=== PATIENT | male | born 1965 | race Caucasian/White ===

== ENCOUNTER → 2018-10-29 | Outpatient (CLI) | payer OTHER ==
--- NOTE | 2018-10-29 13:32 | Diagnostic Imaging Report ---
PROCEDURE: MR imaging cervical spine without contrast. TECHNIQUE: Multiplanar, multisequence MR imaging of the cervical spine was performed without contrast. INDICATION: Neck pain and stiffness as well as bilateral shoulder pain. No prior studies are available for comparison. There is mild straightening of the normal cervical lordotic curvature. Minimal retrolisthesis of C5 on C6 is noted. Vertebral body marrow signal is normal. No geographic marrow lesion is seen. There is generalized degenerative disc disease with variable disc space narrowing and desiccation. The cervical cord demonstrates normal homogeneous signal intensity and normal morphology. Craniocervical junction is unremarkable. C2-C3: The central canal and neural foramina are widely patent. C3-C4: Central canal is patent. There is mild neuroforaminal narrowing on the right due to uncovertebral joint degenerative change. Left neural foramen is patent. C4-C5: Central canal is patent. Endplate osteophyte indenting the ventral thecal sac. Neural foramina remain patent. C5-C6: Endplate osteophytes indent the ventral thecal sac. There is mild narrowing of the canal. Moderate bilateral neural foraminal narrowing due to uncovertebral joint degenerative change. C6-C7: Endplate osteophytes indent the thecal sac. The central canal is patent. Neural foramina are patent. C7-T1: Central canal and neural foramina are patent bilaterally. Paraspinous tissues are unremarkable. IMPRESSION: Cervical spondylosis with central canal and neural foraminal narrowing described level by level above. Dictated by: Dictated on workstation # [id number]
== END ==
LOC: RAD 12:00
PROVIDERS: ATTEND Physician Assistant
DX: M50.30 Other cervical disc degeneration, unspecified cervical region (principal); M47.812 Spondylosis without myelopathy or radiculopathy, cervical region; M48.02 Spinal stenosis, cervical region; M25.78 Osteophyte, vertebrae
CPT/HCPCS: 72141

== ENCOUNTER 2022-12-24 09:00 | Day surgery (SDC) | payer BC ==
[~2022-12-24] VITALS: Ht 182.9 cm; Wt 96.8 kg
[2022-12-24] VITALS (8 sets, daily range): BP systolic 108–121; BP diastolic 67–74
[2022-12-24 07:33] LABS: HEMATOCRIT 44 % (40-54); MEAN CORPUSCULAR HEMOGLOBIN 29 pg (25-34); MEAN CORPUSCULAR HGB CONC 34 g/dL (32-36); MEAN CORPUSCULAR VOLUME 86 fL (80-99); MEAN PLATELET VOLUME 9.8 fL (9.0-12.2); PLATELET COUNT 200 10^3/uL (130-400); WHITE BLOOD COUNT 7.5 10^3/uL (4.3-11.0)
[2022-12-24 07:46] LABS: PROTHROMBIN TIME PATIENT 13.1 SEC (12.2-14.7)
[2022-12-24 07:54] LABS: ALBUMIN 4.4 GM/DL (3.2-4.5); BILIRUBIN,TOTAL 0.8 MG/DL (0.1-1.0); CALCIUM 9.3 MG/DL (8.5-10.1); CREATININE SERUM 1.33 MG/DL (0.60-1.30); POTASSIUM 3.4 MMOL/L (3.6-5.0); TOTAL PROTEIN 7.6 GM/DL (6.4-8.2)
[~2022-12-24 09:00] MED LIST: AMLO-250 PO; HEParin (CATH LAB) 2,000 ML IV ONE; HEParin 1000 UNIT/ML (10ML VIAL) FOR BOLUS ONE; LEVO5TAB12 PO; LIDOCAINE 1% INJ 20 ML VIAL ONE; LOTE5DRO3 OP; MIDAZOLAM 5 MG/5 ML (VERSED) VIAL ONE; NITRO DRIP 25000 MCG/D5W 250 ML IV ONE; NS IV 1000 ML 1,000 ML IV SCH; NS IV 1000 ML 1,000 ML ONE; PANT40TA52 PO; PRAV20TA3 PO; VERAPAMIL 5 MG/2 ML (CALAN) VIAL IV ONE; fentaNYL INJ 100 MCG/2 ML AMP ONE
--- NOTE | 2022-12-24 10:50 | Cardiac Procedure Note-CS/ASA ---
Pre-Procedure Note Pre-Op Procedure Note Date of Available H&P: Nov 21, 2022 Date H&P Reviewed: Dec 24, 2022 Time H&P Reviewed: 09:45 History & Physical: H&P Reviewed, No changes noted Moderate Sedation PreProcedure ASA Score 3 Airway Lungs Heart ASA score ASA 1: a normal healthy patient ASA 2: a patient with a mild systemic disease (mid diabetes, controlled hypertension, obesity ASA 3: a patient with a severe systemic disease that limits activity (angina, COPD, prior Myocardial infarction) ASA 4: a patient with an incapacitating disease that is a constant threat to life (CHF, renal failure) ASA 5: a moribund patient not expected to survive 24 hrs. (ruptured aneurysm) ASA 6: a declared brain- patient whose organs are being harvested. For emergent operations, add the letter E after the classification Mallampati Classification Grade 2 Sedation Plan Analgesia, Amnesia, Plan communicated to team members The patient is an appropriate candidate to undergo the planned procedure, sedation, and anesthesia. The patient immediately re-assessed prior to indication. ROQUE FRIAS MD FACP [facility] Dec 24, 2022 10:50
--- NOTE | 2022-12-24 10:59 | Cardiac Cath Report ---
CARDIAC CATHETERIZATION DATE OF PROCEDURE: 12-24-22 INDICATION: Chest pain HISTORY: The patient is a 57 year old male with multiple risk factors and chest discomfort. MPI at [facility] this year is reported by the pat to have been normal, but he remained concerned about obstructive CAD nd requested card cath. PROCEDURES PERFORMED: 1. LHC 2. Cor angio 3. FFR of LAD PROCEDURE DESCRIPTION: After informed consent and in the fasting state, left heart catheterization was performed through the R radial artery utilizing a 6 U[place]bek system by percutaneous approach. TIG cath for diagnostic cor angio. 5F pigtail for LHC and pullback after completion of FFR. All catheters were exchanged over a guidewire. HEMODYNAMICS: LVEDP 23 mmHg, non significant pressure gradient on pullback CORONARY ANGIOGRAPHY: Left main coronary artery: Ok Left anterior descending coronary artery: 30% ostial (iFR 1) and 50% mid vessel (iFR 0.92) Left circumflex coronary artery: Ok Right coronary artery: Dominant, mild plaques iFR of LAD Guide: 6F JL4 Wire: Pressure wire Results: - across the combination of ostial 30% and mid 50%, iFR was 0.92 - across just the ostial LAD, iFR was 1 IMPRESSION: 1. LMCA Ok; LAD 30% ostial (iFR 1) and 50% mid vessel (iFR 0.92); LCx Ok; RCA dominant and with mild plaques 2. LVEDP 23 mmHg PLAN Med Rx Risk factor modification Outpt f/u ROQUE FRIAS MD FACP [facility] Dec 24, 2022 10:59
[2022-12-24] MEDS ORDERED: ASPI-999 PO (11:08)
[2022-12-24] MEDS ORDERED: ATOR40TA70 PO (11:08)
--- NOTE | 2022-12-24 11:08 | Discharge Inst-Cardiology ---
Discharge Inst-Cardiac Discharge Medications New Medications: Aspirin (Aspirin) 81 Mg Tab.chew 81 MG PO DAILY, #90 TAB 3 Refills Atorvastatin Calcium (Atorvastatin Calcium) 40 Mg Tablet 40 MG PO DAILY, #90 TAB 3 Refills Continued Medications: Amlodipine Besylate (Amlodipine Besylate) 5 Mg Tablet 5 MG PO HS, TAB Levocetirizine Dihydrochloride (Levocetirizine Dihydrochloride) 5 Mg Tablet 5 MG PO DAILY, TAB Loteprednol Etabonate (Alrex) 0.2 % Drops.susp 1 DROP OP DAILY, DROPS Pantoprazole Sodium (Pantoprazole Sodium) 40 Mg Tablet.dr 40 MG PO BID, TAB Discontinued Medications: Pravastatin Sodium (Pravastatin Sodium) 20 Mg Tablet 20 MG PO HS, TAB [facility]AS [facility] Dec 24, 2022 11:08
--- NOTE | 2022-12-24 11:09 | Discharge Inst-Post CATH ---
Discharge Inst-CATH/EP Post Cardiac Cath/EP D/C Inst Follow Up/Plan F/u with Dr Pina in one month ACTIVITY * Go Home directly and rest. * Limit activity of the leg (or wrist if it was used) for 7 days including aerobics, swimming, jogging, bicycling, etc. * Restrict stair-climbing for 7 days if possible, if not, climb up with your non-cath leg, then bring together on the same step. * Avoid lifting, pushing, pulling or excessive movement of the affected e xtremity for 7 days. * Customary sexual activity may be resumed after 2 days-use caution not to use a position that strains or causes pain to the affected extremity. * No driving for 24 hours. * NO SMOKING. * Avoid straining for bowel movements for 7 days. * Gentle walking on level ground is allowed. * Returning to work will depend on the type of procedure and the results. Your doctor will discuss this with you. CALL YOUR DOCTOR FOR ANY OF THE FOLLOWING: *If bleeding from the puncture site occurs- Apply gentle pressure to site with clean cloth and call your doctor or EMS. * If a knot or lump forms under the skin, increases in size, or causes pain. * If bruising appears to be worsening or moving further down your leg instead of disappearing. * Temperature above 101 F. CARE OF YOUR GROIN INCISION; * Bruising or purple discoloration of the skin near the puncture site is common. * You may shower only, no bathtub bathing for 5 days. Be careful to avoid slipping as your leg may feel stiff. * If a closure device was used on your femoral artery, please see the attached guide regarding care of the device and your leg. * Leave dressing on FOR 24 hours. CARE OF YOUR WRIST INCISION; * Bruising or purple discoloration of the skin near the puncture site is common. * You may shower. * DO NOT submerge wrist. * Leave dressing on FOR 24 hours. ROQUE PINA MD [facility] Dec 24, 2022 11:09
[2022-12-24] MEDS ORDERED: ASPIRIN 81 MG CHEW (CHILDREN'S ASA) PO ONE (11:15)
[2022-12-24] MEDS ORDERED: NS IV 1000 ML 1,000 ML IV SCH (11:15)
[2022-12-24] MEDS ORDERED: PATIENT MAY USE OWN MEDS, ALL PO SCH (11:15)
== END 2022-12-24 13:30 ==
LOC: CATH 09:00 → SDC 11:17 → CATH 13:30
PROVIDERS: ATTEND Internal Medicine Cardiovascular Disease
DX: I25.10 Atherosclerotic heart disease of native coronary artery without angina pectoris (principal); I12.9 Hypertensive chronic kidney disease with stage 1 through stage 4 chronic kidney disease, or unspecified chronic kidney disease; N18.2 Chronic kidney disease, stage 2 (mild); E78.2 Mixed hyperlipidemia
CPT/HCPCS: 80053; 80061; 85027; 85610; 85730; 87081; 93005; 93458; 93571; C1769 ×2; C1894; 36415